=== PATIENT | male | born 1945 | race Caucasian/White ===

== ENCOUNTER 2016-11-12 12:10 | Emergency (ER) | payer OTHER, MEDICARE ==
[~2016-11-12] VITALS: Ht 172.7 cm; Wt 106.5 kg
[~2016-11-12 12:10] MED LIST: AMLODIPINE BESY10 MG PO; ATORVASTATIN CA40 MG PO; AUGMENTIN875 MG PO; CLARITIN,ALAVAR10 MG PO; DIOVAN160 MG PO; ENDOCET 5-3251 EACH PO; LANTUS 10100 UNITS/ SC; LO-DOSE ASPIRIN81 M1 PO; METFORMIN HCL500 M1 PO; METOPROLOL SUCC50 MG PO; MIRAPEX0.5 MG PO; NASACORT AQ16.5 GM BOTH NARES; NOVOLOG MI100 UNIT/4 SC; SEROQUEL200 MG PO; SERTRALINE HCL50 MG PO; TUMS500 MG PO
[2016-11-12 12:31] LABS: ADD MIUA? YES; BILIRUBIN NEGATIVE; BLOOD SMALL; COLOR YELLOW ((YELLOW)); GLUCOSE (STRIP) >=500; KETONES 5; LEUKOCYTES LARGE; NITRITE POSITIVE; PROTEIN (STRIP) 100; SPECIFIC GRAVITY 1.028 (1.000-1.030); UROBILINOGEN 0.2 MG/DL (0.2-1.0)
[2016-11-12 13:05] LABS: WHITE BLOOD CELLS TNTC /HPF (0-5)
[2016-11-12 13:06] LABS: BACTERIA 2+ /HPF; EPITHELIAL CELLS 1+ /HPF; MUCUS NONE SEEN /LPF; UCUL ADDED? YES
[2016-11-12 13:31] LABS: HEMATOCRIT 46.6 % (38.0-50.0); MCH 29.3 PG (29.0-34.0); MCHC 34.1 G/DL (30.0-36.0); MEAN PLAT.VOLUME 10.6 uM^3 (9.0-12.4); PLATELET COUNT 210 K/uL (156-360); RBC DIS.WIDTH-CV 13.3 % (11.8-14.6); RBC DIS.WIDTH-SD 41.5 % (39-53); RED BLOOD COUNT 5.42 M/uL (4.00-5.50); WHITE BLOOD COUNT 22.2 K/uL (4.1-10.2)
[2016-11-12 13:39] LABS: CHLORIDE 100 mEq/L (99-109); SODIUM 131 mEq/L (136-147)
[2016-11-12 13:41] LABS: GLUCOSE 221 mg/dL (70-99)
[2016-11-12 13:42] LABS: ANION GAP 11 MEQ/L (2-14)
[2016-11-12 13:45] LABS: GFR ESTIMATE (CALCULATED) > 59 mL/min/
[2016-11-12 13:46] LABS: UREA NITROGEN (BUN) 16 mg/dL (9-23)
[2016-11-12] MEDS ORDERED: ZOFRAN4 MG PO (15:19)
[2016-11-12] MEDS ORDERED: BACTRIM,SEPT1 TABLET PO (15:19)
[2016-11-12 16:42] VITALS: BP 122/70
== END 2016-11-12 16:44 | disposition home or self-care (01) ==
LOC: EME 12:10
PROVIDERS: Physician Assistant
DX: N39.0 Urinary tract infection, site not specified (principal); E11.9 Type 2 diabetes mellitus without complications; E78.5 Hyperlipidemia, unspecified; I10 Essential (primary) hypertension; K21.9 Gastro-esophageal reflux disease without esophagitis; Z95.1 Presence of aortocoronary bypass graft; Z79.82 Long term (current) use of aspirin; Z79.4 Long term (current) use of insulin; Z79.84 Long term (current) use of oral hypoglycemic drugs; Z79.899 Other long term (current) drug therapy; Z72.0 Tobacco use
CPT/HCPCS: 80048; 81003; 83605; 85027; 87077; 87086; 87186; 99281; 99284; J0696; J7040; J7050

== ENCOUNTER 2017-09-19 19:59 | Emergency (ER) | payer OTHER, MEDICARE ==
[~2017-09-19] VITALS: Ht 172.7 cm; Wt 113.9 kg
[~2017-09-19 19:59] MED LIST changes: +BACTRIM,SEPT1 TABLET PO; +CRESTOR20 MG PO; +ERGOCALCIF50000 UNIT PO; +INVOKANA100 MG PO; +ROPINIROLE HCL2 MG PO; +TAMSULOSIN HCL0.4 MG PO; +TRAMADOL HCL50 MG PO; +ZOFRAN4 MG PO
[2017-09-19 21:08] LABS: HEMATOCRIT 41.8 % (38.0-50.0); HEMOGLOBIN 14.8 G/DL (12.5-16.6); MCH 30.3 PG (29.0-34.0); MCHC 35.4 G/DL (30.0-36.0); MCV 85.7 FL (86-99); PLATELET COUNT 206 K/uL (156-360); RBC DIS.WIDTH-CV 12.6 % (11.8-14.6); RBC DIS.WIDTH-SD 39.1 % (39-53); RED BLOOD COUNT 4.88 M/uL (4.00-5.50)
[2017-09-19 21:18] LABS: CHLORIDE 100 mEq/L (99-109); SODIUM 136 mEq/L (136-147)
[2017-09-19 21:20] LABS: GLUCOSE 323 mg/dL (70-99)
[2017-09-19 21:24] LABS: CREATININE 1.3 mg/dL (0.6-1.3); GFR ESTIMATE (CALCULATED) 58 mL/min/ (58.99-99999)
[2017-09-19 21:25] LABS: UREA NITROGEN (BUN) 20 mg/dL (9-23)
[2017-09-19 21:58] LABS: TROP-I INTERPRETATION NEGATIVE; TROPONIN-I 0.02 ng/mL (0.0-0.30)
[2017-09-19 23:17] VITALS: BP 165/87
== END 2017-09-19 23:17 | disposition home or self-care (01) ==
LOC: EME 19:59
PROVIDERS: Physician Assistant
DX: E11.65 Type 2 diabetes mellitus with hyperglycemia (principal); R06.00 Dyspnea, unspecified; I10 Essential (primary) hypertension; E78.5 Hyperlipidemia, unspecified; K21.9 Gastro-esophageal reflux disease without esophagitis; F41.9 Anxiety disorder, unspecified; Z79.4 Long term (current) use of insulin; Z79.82 Long term (current) use of aspirin; Z95.1 Presence of aortocoronary bypass graft; Z90.49 Acquired absence of other specified parts of digestive tract
CPT/HCPCS: 71046; 80048; 83605; 83880; 84484; 85027; 85379; 87040; 93005; 99281; 99284